=== PATIENT | male | born 1995 | race Caucasian/White ===

== ENCOUNTER 2021-07-03 00:49 | Emergency (ER) | payer OTHER ==
[2021-07-03 00:55] VITALS: BP 120/71; PULSE 71; TEMP 98; BMI 28.3
[2021-07-03] MEDS ORDERED: KETOROLAC TROMETHAMINE 30 MG/1 ML VIAL IM ONE (01:28)
[2021-07-03] MEDS ORDERED: LIDOCAINE 5% TOPICAL PATCH TP ONE (01:34)
[2021-07-03] MEDS ORDERED: LIDOCAINE 5% TOPICAL PATCH ONE (01:50)
[2021-07-03] MEDS ORDERED: KETOROLAC TROMETHAMINE 30 MG/1 ML VIAL ONE (01:50)
[2021-07-03] MEDS ORDERED: LIDOCAINE PATCH REMOVAL MC SCH (22:00)
== END 2021-07-03 02:06 | disposition home or self-care (01) ==
LOC: JER 00:49
PROC: 3E023GC Introduction of Other Therapeutic Substance into Muscle, Percutaneous Approach (ICD-10-PCS; principal; 2021-07-03)
DX: S39.012A Strain of muscle, fascia and tendon of lower back, initial encounter (principal); V49.40XA Driver injured in collision with unspecified motor vehicles in traffic accident, initial encounter
CPT/HCPCS: 99284-25